=== PATIENT | female | born 1995 | race African-American/Black ===

== ENCOUNTER 2017-03-23 05:52 | Emergency (ER) | payer OTHER ==
[~2017-03-23] VITALS: Ht 162.6 cm; Wt 61.7 kg
--- NOTE | 2017-03-23 06:22 | PHYS DOC ---
General Chief Complaint: Palpitations Stated Complaint: abdominal pain Time Seen by MD: 06:06 Source: patient Exam Limitations: no limitations Problems: History of Present Illness Initial Comments Patient is a 20-year-old female who comes to the ED complaining of left-sided abdominal pain lightheadedness and palpitations. 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 She felt as if her heart was racing and was overall fatigued. She reports that for the past week or so she's had left-sided abdominal discomfort which is been worsening. She says she's had frequency of urine with odor no blood noted at denies nausea vomiting fever chills or body aches and states that she has had similar symptoms in the past associated with panic attack. She denies any recent stressors in doesn't feel that anxiety is cause for this morning's symptoms. She denies she has an IUD in place she denies smoking her vital signs on arrival reveal that she is afebrile no tachycardia she's mildly hypertensive and oxygenating well. Timing/Duration: 1 week, getting worse Severity: moderate Modifying Factors: worse with movement, improves with rest Associated Symptoms: malaise, other Allergies: Coded Allergies: No Known Drug Allergies (Unverified , 03/25/14) Past Medical History Medical History: other (anxiety) Surgical History: no surgical history Family History Significant Family History: no pertinent family hx Social History Smoker: non-smoker Alcohol: none Drugs: none Review of Systems Constitutional: denies chills, denies diaphoresis, denies fever, malaise Respiratory: denies cough, denies shortness of breath, denies wheezing Cardiovascular: chest pain Gastrointestinal: see HPI Genitourinary: see HPI Musculoskeletal: denies joint swelling, denies neck pain Psychiatric/Neurological: denies numbness, denies paresthesia, denies weakness Physical Exam General Appearance: WD/WN, no apparent distress Eyes: bilateral eye normal inspection, bilateral eye PERRL, bilateral eye EOMI Ear, Nose, Throat: hearing grossly normal, normal ENT inspection Respiratory: lungs clear, normal breath sounds Cardiovascular: normal peripheral pulses, regular rate, rhythm Gastrointestinal: soft (nondistended exquisite suprapubic tenderness with mild guarding no rebound. 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 I reviewed her labs, they're unremarkable she does have leukocyte esterase present. Given her physical exam as well as her history we will treat with Bactrim and Pyridium. I discussed the treatment plan patient expressed agreement and understanding. Departure Time of Disposition: 08:07 Disposition: HOME, SELF-CARE Diagnosis: UTI, dehydration Condition: IMPROVED Patient Instructions: Dehydration, Adult, Vjtr-jl-Pypn, Urinary Tract Infection , Kwck-oo-Ireb Additional Instructions: Off work through March 25 note given. Aggressive hydration with Gatorade and water. Qwfm-fyw-[id number] Tylenol as needed. Prescription: Bactrim DS, Pyridium Follow-up with your doctor in 7-10 days for a recheck and urine culture results. Return to ED with new or changing symptoms. CHIOMA CAREY DO Mar 23, 2017 06:22
[2017-03-23] MEDS ORDERED: ONDANSETRON PF 4 MG/2 ML VIAL. IV ONE (06:30)
[2017-03-23] MEDS ORDERED: KETOROLAC 30 MG/ML VIAL. IV ONE (06:30)
[2017-03-23] MEDS ORDERED: IV NORMAL SALINE 1,000ML 1,000 ML IV SCH (06:30)
[2017-03-23 06:54] LABS: BASO % 0 % (0-3); EOS % 1 % (0-3); HEMATOCRIT 40.8 % (36.0-47.0); HEMOGLOBIN 13.7 g/dL (12.0-15.5); LYMPH # 3.6 x10^3/uL (1.0-4.8); LYMPH % 49 % (24-48); MEAN CORPUSCULAR HEMOGLOBIN 26 pg (25-35); MEAN CORPUSCULAR HGB CONC 34 g/dL (31-37); MEAN CORPUSCULAR VOLUME 79 fL (79-100); MONO # 0.3 x10^3/uL (0.0-1.1); MONO % 4 % (0-9); NEUT # 3.5 x10^3uL (1.8-7.7); NEUT % 47 % (31-73); PLATELET COUNT 246 x10^3/uL (140-400); RED CELL DISTRIBUTION WIDTH 16.1 % (11.5-14.5); WHITE BLOOD COUNT 7.4 x10^3/uL (4.0-11.0)
[2017-03-23 07:01] LABS: CALCIUM 8.8 mg/dL (8.5-10.1); CREATININE 0.8 mg/dL (0.6-1.0); GFR 108.5; POTASSIUM 3.5 mmol/L (3.5-5.1)
[2017-03-23 07:01] LABS: U PREG PATIENT NEGATIVE (NEG)
[2017-03-23 07:07] LABS: BILIRUBIN,URINE NEG (NEG); CLARITY,URINE HAZY; COLOR,URINE YELLOW; GLUCOSE,URINE NEG (NEG); NITRITE,URINE NEG (NEG); UROBILINOGEN,URINE 1 mg/dL (0.2 mg/dL)
[2017-03-23 07:08] LABS: BACTERIA,URINE FEW /HPF (0-FEW); RBC,URINE 0 /HPF (0-2); SQUAMOUS EPITHELIAL CELL,UR FEW /LPF; WBC,URINE OCC /HPF (0-4)
[2017-03-23] MEDS ORDERED: PHEN100T82 PO (08:02)
[2017-03-23] MEDS ORDERED: SULF1TAB24 PO (08:02)
[2017-03-23 08:31] VITALS: BP 119/71
== END 2017-03-23 08:37 | disposition home or self-care (01) ==
LOC: ER 05:52
DX: N39.0 Urinary tract infection, site not specified (principal); E86.0 Dehydration
CPT/HCPCS: 36415; 80048; 81001; 81025; 85025; 87086; 96361; 96374; 96375; 99284; J1885; J2405; J7030

== ENCOUNTER 2019-03-08 22:55 | Emergency (ER) | payer BC, OTHER ==
[~2019-03-08] VITALS: Ht 162.6 cm; Wt 61.7 kg
[~2019-03-08 22:55] MED LIST: PHEN100T82 PO; SULF1TAB24 PO
[2019-03-08] MEDS ORDERED: ONDANSETRON PF 4 MG/2 ML VIAL. IV ONE (23:30)
[2019-03-08] MEDS ORDERED: FAMOTIDINE 20 MG/2 ML VIAL IVP ONE (23:30)
[2019-03-08] MEDS ORDERED: IV NORMAL SALINE 1,000ML 1,000 ML IV ONE (23:30)
[2019-03-08 23:43] VITALS: BP 123/86
[2019-03-08 23:57] LABS: BASO % 0 % (0-3); EOS % 1 % (0-3); HEMATOCRIT 39.8 % (36.0-47.0); HEMOGLOBIN 13.1 g/dL (12.0-15.5); LYMPH # 3.2 x10^3/uL (1.0-4.8); LYMPH % 56 % (24-48); MEAN CORPUSCULAR HEMOGLOBIN 27 pg (25-35); MEAN CORPUSCULAR HGB CONC 33 g/dL (31-37); MEAN CORPUSCULAR VOLUME 81 fL (79-100); MONO # 0.3 x10^3/uL (0.0-1.1); MONO % 6 % (0-9); NEUT # 2.2 x10^3uL (1.8-7.7); NEUT % 38 % (31-73); PLATELET COUNT 305 x10^3/uL (140-400); RED CELL DISTRIBUTION WIDTH 14.9 % (11.5-14.5); WHITE BLOOD COUNT 5.8 x10^3/uL (4.0-11.0)
[2019-03-09 00:07] LABS: BILIRUBIN,URINE NEG (NEG); CLARITY,URINE CLEAR; COLOR,URINE YELLOW; GLUCOSE,URINE NEG (NEG); NITRITE,URINE NEG (NEG); UROBILINOGEN,URINE 0.2 mg/dL (0.2 mg/dL)
[2019-03-09 00:08] LABS: BACTERIA,URINE 0 /HPF (0-FEW); RBC,URINE 0 /HPF (0-2); SQUAMOUS EPITHELIAL CELL,UR MOD /LPF
[2019-03-09 00:14] LABS: CALCIUM 9.2 mg/dL (8.5-10.1); CREATININE 0.7 mg/dL (0.6-1.0); GFR 125.5; MAGNESIUM 1.8 mg/dL (1.8-2.4); POTASSIUM 3.5 mmol/L (3.5-5.1); TOTAL BILIRUBIN 0.4 mg/dL (0.2-1.0); TOTAL PROTEIN 8.2 g/dL (6.4-8.2)
[2019-03-09] MEDS ORDERED: ONDA4TAB12 PO (00:14)
--- NOTE | 2019-03-09 00:15 | PHYS DOC ---
Past History Past Medical History: No Pertinent History Past Surgical History: No Surgical History Smoking: Non-smoker Alcohol Use: None Drug Use: None Adult General Chief Complaint Chief Complaint: NAUSEA/VOMITING/DIARRHEA HPI HPI 23-year-old female presents with report of nausea and vomiting which occurred a pproximately 20 minutes prior to arrival. Patient reports associated dizziness. Patient concerned as she was noted to have a heart rate at 140 and blood pressure of 140/82. Patient denies known sick contacts. Denies fever or chills. Denies . Reports last period approximately 2 weeks ago. Review of Systems Review of Systems Constitutional: Denies fever or chills Eyes: Denies redness or eye pain HENT: Denies nasal congestion or sore throat Respiratory: Denies cough or shortness of breath Cardiovascular: Denies chest pain or palpitations GI: Denies abdominal pain; reports, nausea and vomiting : Denies dysuria or hematuria Musculoskeletal: Denies back pain or joint pain Integument: Denies rash or skin lesions Neurologic: Denies headache, focal weakness or sensory changes; reports dizziness Complete systems were reviewed and found to be within normal limits, except as documented in this note. Current Medications Current Medications Current Medications Medications (Trade) Dose Ordered Sig/Pio Start Time Stop Time Status Last Admin Dose Admin Famotidine (Pepcid Vial) 20 mg 1X ONCE 03/08/19 23:30 03/08/19 23:32 DC 03/08/19 23:46 20 MG Ondansetron HCl (Zofran) 4 mg 1X ONCE 03/08/19 23:30 03/08/19 23:32 DC 03/08/19 23:46 4 MG Sodium Chloride 1,000 ml @ 1,000 mls/hr 1X ONCE 03/08/19 23:30 03/09/19 00:29 03/08/19 23:46 1,000 MLS/HR Allergies Allergies Allergies Coded Allergies Type Severity Reaction Last Updated Verified No Known Drug Allergies 03/25/14 No Physical Exam Physical Exam Constitutional: Well developed, well nourished, no acute distress, non-toxic appearance HENT: Normocephalic, atraumatic, oropharynx moist Eyes: PERRL, EOMI, conjunctiva normal, no discharge Neck: Normal range of motion, no tenderness, supple Cardiovascular: Heart rate normal, regular rhythm Lungs & Thorax: Bilateral breath sounds clear to auscultation, no wheezing Abdomen: Soft, no tenderness Skin: Warm, dry, no erythema, no rash Back: No tenderness, no CVA tenderness Extremities: No tenderness, ROM intact, no edema Neurologic: Alert and oriented X 3, normal motor function, normal sensory function, no focal deficits noted Psychologic: Affect normal, judgement normal, mood normal Current Patient Data Vital Signs Vital Signs Date Time Temp Pulse Resp B/P (MAP) Pulse Ox O2 Delivery O2 Flow Rate FiO2 03/08/19 23:20 75 18 100 Room Air EKG EKG [] Radiology/Procedures Radiology/Procedures [] Course & Med Decision Making Course & Med Decision Making Pertinent Lab studies reviewed. (See chart for details) Patient presents with report of nausea and vomiting �1 episode which occurred prior to arrival. Reports some associated dizziness and report of blood pressure slightly elevated along with tachycardia. Vital signs improved upon arrival. Abdomen non-peritoneal. Labs obtained and posted to chart. Preg negative. (Serum preg negative as unable to do urine preg due unavailability of urine cards). IV fluid hydration provided. Symptomatic treatment also provided with interval improvement of symptoms. Patient stable for discharge with outpatient follow-up with PCP. Discussed findings and plan with patient and family, who acknowledge understanding and agreement. Dragon Disclaimer Dragon Disclaimer This electronic medical record was generated, in whole or in part, using a voice recognition dictation system. Departure Departure: Impression: Primary Impression: Nausea and vomiting Additional Impression: Dizziness Disposition: 01 HOME, SELF-CARE Condition: IMPROVED Referrals: ODILIA PIERRE PAC (PCP) Patient Instructions: Dizziness, Elis-mg-Rwwd, Nausea and Vomiting, Hprq-sg-Nlgz Scripts Famotidine (PEPCID) 20 Mg Tablet 1 TAB PO BID for Gastritis, #20 TAB Prov: LEO WELLS DO 03/09/19 Ondansetron (ONDANSETRON ODT) 4 Mg Tab.rapdis 1 TAB PO PRN Q6-8HRS PRN for NAUSEA, #16 TAB Prov: LEO WELLS DO 03/09/19 Problem Qualifiers Primary Impression: Nausea and vomiting Vomiting type: unspecified Vomiting Intractability: non-intractable Qualified Codes: R11.2 - Nausea with vomiting, unspecified LEO WELLS DO Mar 09, 2019 00:15
[2019-03-09] MEDS ORDERED: FAMO-63 PO (00:22)
[2019-03-09 00:51] LABS: PREG TEST PT QUAL NEGATIVE (NEG)
== END 2019-03-09 00:45 | disposition home or self-care (01) ==
LOC: ER 22:55
DX: R11.2 Nausea with vomiting, unspecified (principal); R42 Dizziness and giddiness
CPT/HCPCS: 36415; 80053; 81001; 83690; 83735; 84703; 85025; 87086; 96361; 96374; 96375; 99284; J2405; J3490; J7030

== ENCOUNTER 2019-08-10 16:36 | Emergency (ER) | payer BC ==
[~2019-08-10] VITALS: Ht 162.6 cm; Wt 61.7 kg
[~2019-08-10 16:36] MED LIST changes: +FAMO-63 PO; +ONDA4TAB12 PO
[2019-08-10 16:55] VITALS: BP 110/70
--- NOTE | 2019-08-10 17:08 | PHYS DOC ---
Past History Past Medical History: No Pertinent History Past Surgical History: No Surgical History Smoking: Non-smoker Alcohol Use: None Drug Use: None Adult General Chief Complaint Chief Complaint: FLU SYMPTOM HPI HPI Patient is a 24-year-old female who presents to ER today for evaluation of productive cough with brown sputum for about 2 weeks. Patient says she got better but then the last 4 days symptom. Return again. Patient also complaint of nasal congestion, facial pain, body aches, flulike symptom. Patient denies any abdominal pain, no nausea vomiting, no trouble breathing. aLL OTHER ros IS NEGATIVE UNLESS OTHERWISE NOTED IN hpi Review of Systems Review of Systems See above Allergies Allergies Allergies Coded Allergies Type Severity Reaction Last Updated Verified No Known Drug Allergies 03/25/14 No Physical Exam Physical Exam See above Constitutional: Well developed, well nourished, no acute distress, non-toxic appearance. [] HENT: Normocephalic, atraumatic, bilateral external ears normal, oropharynx moist, no oral exudates, NASAL MUNROE WITH CLEAR MUCUS, BILATERAL FACIAL AND MAXILLARY SINUSES TENDER TO PALPATION. Eyes: PERRLA, EOMI, conjunctiva normal, no discharge. [] Neck: Normal range of motion, no tenderness, supple, no stridor. [] Cardiovascular:Heart rate regular rhythm, no murmur [] Lungs & Thorax: Bilateral breath sounds clear to auscultation [] Abdomen: Bowel sounds normal, soft, no tenderness, no masses, no pulsatile masses. [] Skin: Warm, dry, no erythema, no rash. [] Back: No tenderness, no CVA tenderness. [] Extremities: No tenderness, no cyanosis, no clubbing, ROM intact, no edema. [] Neurologic: Alert and oriented X 3, normal motor function, normal sensory function, no focal deficits noted. [] Psychologic: Affect normal, judgement normal, mood normal. [] Current Patient Data Vital Signs Vital Signs Date Time Temp Pulse Resp B/P (MAP) Pulse Ox O2 Delivery O2 Flow Rate FiO2 08/10/19 16:55 98.3 70 18 100 Room Air EKG EKG [] Radiology/Procedures Radiology/Procedures [][address] [address] IMAGING REPORT Signed PATIENT: OTILIO TREVINO ACCOUNT: [id number] : 1995 LOCATION: ER AGE: 24 SEX: F EXAM STATUS: REG ER ORD. PHYSICIAN: MAHAMED FLORES DO REASON: PRODUCTIVE COUGH FOR 2 WEEKS PROCEDURE: CHEST PA & LATERAL CHEST PA LATERAL Technique: PA and lateral views of the chest were obtained. Clinical History: Comparison: None. Findings: The heart and pulmonary vasculature appear within normal limits. There is a few linear opacities in the right middle lobe. The pleural margins are clear. Impression: Mild right middle lobe infiltrate likely discoid atelectasis. Electronically signed by: Debbie Larson III, MD (08/10/2019 6:08 PM) [facility] DICTATED AND SIGNED BY: DEBBIE LARSON III, MD DATE: 08/10/191807 CC: MAHAMED FLORES DO; ODILIA PIERRE PAC ~ Course & Med Decision Making Course & Med Decision Making Pertinent Labs and Imaging studies reviewed. (See chart for details) [] Dragon Disclaimer Dragon Disclaimer This electronic medical record was generated, in whole or in part, using a voice recognition dictation system. Departure Departure: Impression: Primary Impression: Sinusitis, acute Additional Impression: Bronchitis Disposition: HOME, SELF-CARE Condition: STABLE Referrals: ODILIA PIERRE (PCP) follow up with your doctor on Wednesday for reevaluation Patient Instructions: Acute Bronchitis, Sinusitis Scripts Albuterol Sulfate (PROAIR HFA INHALER) 8.5 Gm Hfa.aer.ad 2 PUFF IH PRN Q4-6HRS PRN for wheezing for 21 Days, #1 INHALER 0 Refills Prov: MAHAMED FLORES DO 08/10/19 Amoxicillin/Potassium Clav (AUGMENTIN 875-125 TABLET) 1 Each Tablet 1 TAB PO BID for sinusitis for 10 Days, #20 TAB 0 Refills Prov: MAHAMED FLORES DO 08/10/19 Prednisone (PREDNISONE) 20 Mg Tablet 1 TAB PO DAILY for bronchitis for 10 Days, #10 TAB Prov: MAHAMED FLORES DO 08/10/19 Problem Qualifiers MAHAMED FLORES DO Aug 10, 2019 17:08
--- NOTE | 2019-08-10 18:11 | RAD ---
CHEST PA LATERAL Technique: PA and lateral views of the chest were obtained. Clinical History: Comparison: None. Findings: The heart and pulmonary vasculature appear within normal limits. There is a few linear opacities in the right middle lobe. The pleural margins are clear. Impression: Mild right middle lobe infiltrate likely discoid atelectasis. Electronically signed by: Gurpreet Burris III, MD (08/10/2019 6:08 PM) [facility]
[2019-08-10] MEDS ORDERED: AMOX1TAB61 PO (18:48)
[2019-08-10] MEDS ORDERED: ALBU2.5V8 IH (18:48)
[2019-08-10] MEDS ORDERED: PRED20TA PO (18:48)
== END 2019-08-10 18:58 | disposition home or self-care (01) ==
LOC: ER 16:36
DX: J01.90 Acute sinusitis, unspecified (principal); J40 Bronchitis, not specified as acute or chronic
CPT/HCPCS: 71046; 99284

== ENCOUNTER → 2020-01-08 | Outpatient (CLI) | payer BC ==
[~2020-01-08] MED LIST changes: +ALBU2.5V8 IH; +AMOX1TAB61 PO; +PRED20TA PO
--- NOTE | 2020-01-08 15:27 | RAD ---
OB ultrasound greater than 14 weeks INDICATION: Size dates discrepancy. TECHNIQUE: Grayscale, color, M-mode and spectral Doppler imaging of the gravid uterus was performed transabdominally. FINDINGS: Based on LMP of 08/02/2019, gestational age by dates is 22 weeks and 5 days with an estimated delivery date of May 08, 2020. Ultrasound reveals a single live intrauterine gestation in transverse maternal right lie with a heart rate of 143 bpm. There is a normal amniotic fluid volume and the placenta is posterior and not low-lying. Cervix is 4.2 cm in length. Biparietal diameter of 4.6 cm corresponds with 20 weeks 0 days Head circumference of 18.4 cm corresponds with 20 weeks 5 days Abdominal circumference of 16.3 cm corresponds with 21 weeks 3 days Femoral length of 4.1 cm corresponds with 23 weeks 1 day. Average ultrasound age is 21 weeks 2 days with an estimated delivery date of May 18, 2020. Head to abdominal circumference ratio is 1.1. Estimated weight is 463 +/- 69 g (1 lb. 0 oz. +/- 2 ounces). This is estimated at the 28th percentile for weight. anatomic survey shows 4 chamber heart, normal-appearing cord insertion, bladder, stomach, kidneys, spine and brain. movement was observed but no breathing was seen. Maternal adnexa were assessed. The ovaries are not well seen. No pelvic free fluid or adnexal mass was observed. IMPRESSION: Single live intrauterine gestation in transverse maternal right lie with a posterior, not low-lying placenta and an average ultrasound age of 21 weeks 2 days. Estimated delivery date of May 18, 2020. Sonographic anatomic survey is unremarkable. Electronically signed by: Kamlesh Martínez MD (01/08/2020 3:24 PM) [id number]
== END | disposition home or self-care (01) ==
LOC: US 11:00
PROVIDERS: ATTEND Obstetrics & Gynecology
DX: O26.842 Uterine size-date discrepancy, second trimester (principal); O32.2XX0 Maternal care for transverse and oblique lie, not applicable or unspecified; Z3A.21 21 weeks gestation of pregnancy
CPT/HCPCS: 76805

== ENCOUNTER → 2020-03-19 | Outpatient (CLI) | payer BC ==
[2020-03-19 13:59] LABS: BASO % 0 % (0-3); EOS % 0 % (0-3); HEMOGLOBIN 10.1 g/dL (12.0-15.5); LYMPH # 1.7 x10^3/uL (1.0-4.8); LYMPH % 19 % (24-48); MEAN CORPUSCULAR HEMOGLOBIN 29 pg (25-35); MEAN CORPUSCULAR HGB CONC 34 g/dL (31-37); MEAN CORPUSCULAR VOLUME 85 fL (79-100); MONO # 0.6 x10^3/uL (0.0-1.1); MONO % 7 % (0-9); NEUT # 6.5 x10^3uL (1.8-7.7); NEUT % 73 % (31-73); PLATELET COUNT 194 x10^3/uL (140-400); RED BLOOD COUNT 3.53 x10^6/uL (3.50-5.40); RED CELL DISTRIBUTION WIDTH 15.4 % (11.5-14.5); WHITE BLOOD COUNT 8.9 x10^3/uL (4.0-11.0)
== END | disposition home or self-care (01) ==
LOC: LAB 10:57
PROVIDERS: ATTEND Obstetrics & Gynecology
DX: O09.90 Supervision of high risk pregnancy, unspecified, unspecified trimester (principal); Z3A.00 Weeks of gestation of pregnancy not specified
CPT/HCPCS: 36415; 82950; 85025

== ENCOUNTER → 2020-03-27 | Outpatient (CLI) | payer BC ==
--- NOTE | 2020-03-27 09:56 | RAD ---
EXAM: OBSTETRIC ULTRASOUND. HISTORY: Assess size and dates. COMPARISON: None. FINDINGS: Sonographic evaluation of the uterus, fetus and maternal pelvis was performed. There is a single fetus in vertex presentation. heart rate is 137 bpm. Estimated gestational age based on measurements is 32 weeks 5 days. Head circumference, biparietal diameter, abdominal circumference and femur length are commensurate. Estimated weight is 2006 g. The placenta is posterior and fundal. There is no evidence of placenta previa. Amniotic fluid volume appears normal with amniotic fluid index 12.8 cm. The cervix is partially obscured by the head but appears grossly closed. The heart is four-chamber. There is no hydrocephalus. Images of the kidneys reveal no hydronephrosis. The stomach and bladder are visualized. The cord is three-vessel. The maternal adnexa reveal no abnormality. IMPRESSION: 1. Single fetus in vertex presentation. heart rate 137 bpm. Estimated gestational age based on measurements 32 weeks 5 days. Electronically signed by: Michelle Luna MD (03/27/2020 9:53 AM) [id number]
== END | disposition home or self-care (01) ==
LOC: US 08:06
PROVIDERS: ATTEND Obstetrics & Gynecology
DX: O26.843 Uterine size-date discrepancy, third trimester (principal); Z3A.32 32 weeks gestation of pregnancy
CPT/HCPCS: 76815

== ENCOUNTER 2020-11-04 19:15 | Emergency (ER) | payer BC ==
[~2020-11-04] VITALS: Ht 162.6 cm; Wt 63.0 kg
--- NOTE | 2020-11-04 19:58 | EKG ---
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
--- NOTE | 2020-11-04 19:58 | PHYS DOC ---
Past History Past Medical History: No Pertinent History Past Surgical History: No Surgical History Smoking: Non-smoker Alcohol Use: None Drug Use: None General Adult EDM: Chief Complaint: CHEST PAIN HPI: HPI: Patient is a 25-year-old female coming in for chest tightness radiating to her left shoulder and arm. States she has been checking her blood pressure with a wrist cuff and has been reading in the 150 systolic. Patient states this been going on for approximately a week but has been beginning to feel worse over the past few days. Patient states she has been under increased stress and has had difficulty sleeping. Is currently breast-feeding her 5-month-old. Patient states she had COVID-19 about 3 months ago and does not feel that she is completely recovered. But denies any cough, fevers, shortness of breath. Patient denies any lower extremity edema or history of blood clots in her family. Has a family history of hypertension and diabetes, but no personal history. Denies any change in bowel movements or urine. Denies any recent weight loss, heat or cold intolerance. Denies any trauma or heavy lifting. Review of Systems: Review of Systems: All other systems within normal limits except for as noted in the HPI Allergies: Allergies: Allergies Coded Allergies Type Severity Reaction Last Updated Verified No Known Drug Allergies 11/04/20 No Physical Exam: PE: Constitutional: Well developed, well nourished, no acute distress, non-toxic appearance. [] HENT: Normocephalic, atraumatic, bilateral external ears normal, nose normal. [] Eyes: PERRLA, conjunctiva normal, no discharge. [] Neck: No rigidity, supple, no stridor. [] Cardiovascular: Regular rate and rhythm, brisk cap refill, symmetric radial pulses, symmetric upper extremity blood pressures [] Lungs & Thorax: Non labored symmetric respirations, no tachypnea or respiratory distress, lung sounds clear to auscultation. Chest pain reproducible on anterior superior left chest [] Abdomen: Soft, nondistended. Skin: Warm, dry, no erythema, no rash. [] Back: Unremarkable Extremities: No deformities, range of motion grossly intact, no lower extremity edema [] Neurologic: Alert and oriented X 3, no focal deficits noted. [] Psychologic: Affect normal, judgement normal, mood normal. [] Current Patient Data: Vital Signs: Vital Signs Date Time Temp Pulse Resp B/P (MAP) Pulse Ox O2 Delivery O2 Flow Rate FiO2 11/04/20 19:25 98.4 70 20 120/73 (89) 98 Room Air EKG: EKG: Normal sinus rhythm, heart rate 70 bpm, no ST elevation or depression, no ectopy, normal intervals. Normal axis. [] Radiology/Procedures: Radiology/Procedures: [] Heart Score: C/O Chest Pain: Yes HEART Score for Chest Pain: HEART Score for Chest Pain Response (Comments) Value History Slighlty/Non-Suspicious 0 ECG Normal 0 Age < 45 0 Risk Factors No Risk Factors 0 Troponin < Normal Limit 0 Total 0 Risk Factors: Risk Factors: DM, Current or recent (<one month) smoker, HTN, HLP, family history of CAD, obesity. Risk Scores: Score 0 - 3: 2.5% MACE over next 6 weeks - Discharge Home Score 4 - 6: 20.3% MACE over next 6 weeks - Admit for Clinical Observation Score 7 - 10: 72.7% MACE over next 6 weeks - Early Invasive Strategies Course & Med Decision Making: Course & Med Decision Making Work-up unremarkable, patient refused chest x-ray. Discussed continue to follow-up with her primary care tomorrow and taking her blood pressure cuff to have it calibrated. Marti Disclaimer: Marti Disclaimer: This electronic medical record was generated, in whole or in part, using a voice recognition dictation system. Departure Departure: Impression: Primary Impression: Chest pain Disposition: 01 DC HOME SELF CARE/HOMELESS Condition: IMPROVED Referrals: ODILIA PIERRE PAC (PCP) Patient Instructions: Chest Pain (Nonspecific) ANDREA BHATIA MD Nov 04, 2020 19:58
[2020-11-04 20:46] LABS: BASO % 1 % (0-3); EOS % 1 % (0-3); HEMATOCRIT 41.1 % (36.0-47.0); HEMOGLOBIN 13.3 g/dL (12.0-15.5); LYMPH # 1.9 x10^3/uL (1.0-4.8); LYMPH % 40 % (24-48); MEAN CORPUSCULAR HEMOGLOBIN 26 pg (25-35); MEAN CORPUSCULAR HGB CONC 32 g/dL (31-37); MEAN CORPUSCULAR VOLUME 80 fL (79-100); MONO # 0.3 x10^3/uL (0.0-1.1); MONO % 7 % (0-9); NEUT # 2.4 x10^3uL (1.8-7.7); NEUT % 51 % (31-73); PLATELET COUNT 321 x10^3/uL (140-400); RED BLOOD COUNT 5.12 x10^6/uL (3.50-5.40); RED CELL DISTRIBUTION WIDTH 15.7 % (11.5-14.5); WHITE BLOOD COUNT 4.6 x10^3/uL (4.0-11.0)
[2020-11-04 20:51] LABS: CALCIUM 9.8 mg/dL (8.5-10.1); CREATININE 0.7 mg/dL (0.6-1.0); GFR 123.4; POTASSIUM 4.5 mmol/L (3.5-5.1)
[2020-11-04 21:03] LABS: BACTERIA,URINE 0 /HPF (0-FEW); BILIRUBIN,URINE NEG (NEG); CLARITY,URINE CLEAR; COLOR,URINE YELLOW; GLUCOSE,URINE NEG (NEG); NITRITE,URINE NEG (NEG); RBC,URINE OCC /HPF (0-2); SQUAMOUS EPITHELIAL CELL,UR OCC /LPF; UROBILINOGEN,URINE 0.2 mg/dL (0.2 mg/dL); WBC,URINE 0 /HPF (0-4)
[2020-11-04 21:03] LABS: TOTAL BILIRUBIN 0.5 mg/dL (0.2-1.0)
[2020-11-04 21:27] VITALS: BP 115/68
== END 2020-11-04 21:24 | disposition home or self-care (01) ==
LOC: ER 19:15
DX: R07.89 Other chest pain (principal)
CPT/HCPCS: 36415; 80053; 81001; 81025; 83735; 83880; 84484; 85025; 85379; 93005; 99284